=== PATIENT | male | born 2000 | race Asian ===

== ENCOUNTER 2022-04-06 12:05 | Emergency (ER) | payer OTHER ==
[~2022-04-06] VITALS: Ht 180.3 cm; Wt 98.0 kg
[2022-04-06] MEDS ORDERED: IBUPROFEN 400MG TAB PO ONE (14:55)
[2022-04-06 15:20] VITALS: BP 139/69
== END 2022-04-06 15:22 | disposition home or self-care (01) ==
LOC: M ED 12:05
DX: S83.91XA Sprain of unspecified site of right knee, initial encounter (principal); W18.40XA Slipping, tripping and stumbling without falling, unspecified, initial encounter; Y92.410 Unspecified street and highway as the place of occurrence of the external cause